=== PATIENT | female | born 1980 | race Two or more races ===

== ENCOUNTER 2017-03-03 19:17 | Emergency (ER) | payer OTHER ==
[~2017-03-03] VITALS: Ht 175.3 cm; Wt 55.3 kg
[2017-03-03] MEDS ORDERED: LITH600C4 PO (19:27)
[2017-03-03 20:04] LABS: Urine Amorphous Crystal FEW /hpf (None Seen); Urine Bacteria FEW /hpf (None Seen); Urine Blood 3+ /uL (Negative); Urine Specific Gravity 1.016 (1.001-1.035); Urine WBC 77 /hpf (0 - 5); Urine WBC Clumps PRESENT /hpf (None Seen)
[2017-03-03 20:06] LABS: Basophils # (auto) 0.1 uL; Basophils % (auto) 0.9 % (0.0-2.0); Eosinophils # (auto) 0.2 uL; Eosinophils % (auto) 2.5 % (0.0-7.0); Hematocrit 36.3 % (36.0-46.0); Hemoglobin 11.8 g/dL (12.2-16.2); Lymphocytes # (auto) 2.3 uL; Lymphocytes % (auto) 33.4 % (10.0-50.0); Mean Corpuscular Hgb Conc. 32.6 g/dL (32.0-36.0); Mean Corpuscular Volume 88.9 fL (80.0-100.0); Monocytes # (auto) 0.8 uL; Monocytes % (auto) 11.4 % (0.0-12.0); Neutrophils # (auto) 3.6 uL; Neutrophils % (auto) 51.8 % (37.0-80.0); Platelet Count (auto) 347 10^3/uL (140-450); Red Blood Cells 4.08 10^6/uL (4.0-5.20); Red Cell Distribution Width 14.8 % (11.8-14.3)
[2017-03-03 20:20] LABS: Albumin 3.6 g/dL (3.4-5.0); Calcium 8.7 mg/dL (8.5-10.1); Potassium 3.7 mmol/L (3.5-5.1)
[2017-03-03 20:22] LABS: BUN/Creatinine Ratio 18.6; Bilirubin, Total 0.3 mg/dL (0.2-1.0); Total Protein 7.4 g/dL (6.4-8.2)
[2017-03-03 22:00] VITALS: BP 113/50
[2017-03-03] MEDS ORDERED: cefTRIAXone SOD 1,000 MG VL IV ONE (23:15)
[2017-03-03] MEDS ORDERED: ONDANSETRON HCL 4 MG/2 ML VIAL IV ONE (23:15)
[2017-03-03] MEDS ORDERED: NALBUPHINE HCL 10 MG/1ml INJECTION IV ONE (23:15)
== END 2017-03-04 00:27 | disposition left against medical advice (07) ==
LOC: ER 19:17
DX: N94.6 Dysmenorrhea, unspecified (principal); F17.210 Nicotine dependence, cigarettes, uncomplicated; F12.10 Cannabis abuse, uncomplicated; F15.10 Other stimulant abuse, uncomplicated; Z88.0 Allergy status to penicillin; Z88.8 Allergy status to other drugs, medicaments and biological substances; Z53.29 Procedure and treatment not carried out because of patient's decision for other reasons
CPT/HCPCS: 36415; 80053; 81001; 81025; 85025; 96374; 96375; 99284; J0696; J2300; J2405

== ENCOUNTER 2017-05-19 14:28 | Emergency (ER) | payer MEDICAID, OTHER ==
[~2017-05-19] VITALS: Ht 172.7 cm; Wt 70.3 kg
[~2017-05-19 14:28] MED LIST: LITH600C4 PO
[2017-05-19 15:26] VITALS: BP 160/90
== END 2017-05-19 15:28 | disposition left against medical advice (07) ==
LOC: EDBD 14:28 → ER 14:28
DX: R10.9 Unspecified abdominal pain (principal); R11.2 Nausea with vomiting, unspecified; Z53.21 Procedure and treatment not carried out due to patient leaving prior to being seen by health care provider